=== PATIENT | male | born 1990 | race Caucasian/White ===

== ENCOUNTER 2023-01-26 00:54 | Emergency (ER) | payer OTHER ==
[~2023-01-26] VITALS: Ht 172.7 cm; Wt 138.3 kg
[2023-01-26] MEDS ORDERED: SODIUM CHLORIDE 0.9% 1000ML 1,000 ML IV SCH (01:30)
[2023-01-26] MEDS ORDERED: FAMOTIDINE 20 MG/2 ML VIAL IV STA (01:30)
[2023-01-26] MEDS ORDERED: ONDANSETRON HCL INJ 2MG/ML 2ML 2 MG/ML VIAL IV STA (01:30)
[2023-01-26] MEDS ORDERED: ONDANSETRON HCL INJ 2MG/ML 2ML 2 MG/ML VIAL ONE (01:56)
[2023-01-26] MEDS ORDERED: SODIUM CHLORIDE 0.9% 1000ML 1,000 ML ONE (01:56)
[2023-01-26] MEDS ORDERED: FAMOTIDINE 20 MG/2 ML VIAL IV ONE (01:56)
[2023-01-26] MEDS ORDERED: BELLADONNA ALK/PHENOBARBITAL 5 ML UDC ONE (01:57)
[2023-01-26] MEDS ORDERED: MAGNESIUM/ALUMINUM/SIMETHICONE 30 ML UDC ONE (01:57)
[2023-01-26] MEDS ORDERED: LIDOCAINE VISC 2% SOLN 15 ML UDC ONE (01:57)
[2023-01-26] MEDS ORDERED: MAGNESIUM/ALUMINUM/SIMETHICONE 30 ML UDC PO ONE (02:15)
[2023-01-26] MEDS ORDERED: LIDOCAINE VISC 2% SOLN 15 ML UDC PO ONE (02:15)
[2023-01-26] MEDS ORDERED: BELLADONNA ALK/PHENOBARBITAL 5 ML UDC PO ONE (02:15)
== END 2023-01-26 03:58 | disposition home or self-care (01) ==
LOC: FSED 00:57
DX: R07.89 Other chest pain (principal); R03.0 Elevated blood-pressure reading, without diagnosis of hypertension; K21.9 Gastro-esophageal reflux disease without esophagitis; E66.01 Morbid (severe) obesity due to excess calories
CPT/HCPCS: 71046; 80053; 82553; 84484; 85025; 93005; 99283; J2405; J7030